=== PATIENT | male | born 1985 | race Caucasian/White ===

== ENCOUNTER 2019-03-25 06:58 | Emergency (ER) | payer MEDICAID ==
[~2019-03-25] VITALS: Ht 188 cm; Wt 95.0 kg
[~2019-03-25 06:58] MED LIST: ONDA8TAB13 PO
[2019-03-25 07:02] VITALS: BP 153/75
[2019-03-25] MEDS ORDERED: CYCL-1 PO (07:25)
== END 2019-03-25 08:12 | disposition home or self-care (01) ==
LOC: ER 06:59
DX: S76.912A Strain of unspecified muscles, fascia and tendons at thigh level, left thigh, initial encounter (principal); F17.200 Nicotine dependence, unspecified, uncomplicated; Z98.890 Other specified postprocedural states; Z88.6 Allergy status to analgesic agent; Z88.5 Allergy status to narcotic agent; X58.XXXA Exposure to other specified factors, initial encounter; Y93.89 Activity, other specified; Y92.89 Other specified places as the place of occurrence of the external cause; Y99.9 Unspecified external cause status
CPT/HCPCS: 99283

== ENCOUNTER 2020-10-25 08:57 | Emergency (ER) | payer MEDICAID ==
[~2020-10-25] VITALS: Ht 188 cm; Wt 97.0 kg
[~2020-10-25 08:57] MED LIST changes: +CYCL-1 PO
[2020-10-25 09:05] VITALS: BP 145/70
[2020-10-25] MEDS ORDERED: traMADol 50MG tablet PO ONE (10:45)
[2020-10-25] MEDS ORDERED: ONDA4TAB6 PO ×2 (11:07→11:10)
[2020-10-25] MEDS ORDERED: TRAM50TA2 PO ×2 (11:07→11:09)
== END 2020-10-25 11:35 | disposition home or self-care (01) ==
LOC: ER 08:58
DX: S92.001A Unspecified fracture of right calcaneus, initial encounter for closed fracture (principal); M25.571 Pain in right ankle and joints of right foot; M79.671 Pain in right foot; Z98.890 Other specified postprocedural states; Z88.6 Allergy status to analgesic agent; Z88.8 Allergy status to other drugs, medicaments and biological substances; Z79.899 Other long term (current) drug therapy; V29.3XXA Motorcycle rider (driver) (passenger) injured in unspecified nontraffic accident, initial encounter; Y93.89 Activity, other specified; Y92.89 Other specified places as the place of occurrence of the external cause; Y99.8 Other external cause status
CPT/HCPCS: 29515; 73610; 73630; 73700; 99284

== ENCOUNTER 2025-05-08 08:57 | Outpatient (CLI) | payer MEDICAID ==
[~2025-05-08 08:57] MED LIST changes: +ONDA-245 PO; +ONDA4TAB6 PO; -ONDA8TAB13 PO; +TRAM50TA2 PO
--- NOTE | 2025-05-08 12:49 | RADIOLOGY REPORT ---
CLINICAL INFORMATION: PAIN IN RIGHT SHOULDER. TECHNIQUE: Multisequence multiplanar MRI images of the right shoulder were obtained without contrast. COMPARISON: None FINDINGS: Acromioclavicular joint: There is mild acromioclavicular capsular hypertrophy and moderate adjacent soft tissue edema. There is Type 2 acromion. Small amount of fluid in the subacromial / subdeltoid bursa. Rotator cuff tendons: Supraspinatus, subscapularis, and teres minor tendons appear intact. Small partial-thickness interstitial tear at the infraspinatus tendon insertion involving the posterior fibers measuring up to 0.6 cm in greatest dimension, involving less than 50% of the tendon thickness. Biceps tendon: No significant tendinosis. No evidence of attrition or tear. Labrum: Small tear partially undermining the glenoid attachment of the posterior labrum extending to the posterior inferior labrum. Bones: Cortical deformity at the anterior aspect of the humeral head measuring up to 1.5 x 1.7 cm in approximately 0.3 cm in depth, extending to the anterior inferior aspect of the humeral head. No significant associated marrow edema, appears chronic. Muscles: Normal muscle bulk. No atrophy. Other: Motion limited study. IMPRESSION: 1. Motion limited study. 2. Focal cortical deformity at the anterior aspect of the humeral head and extending to the anterior inferior aspect of the humeral head, likely reverse hill-Sachs deformity in the setting of posterior dislocation. 3. Small tear of the posterior labrum and extending to the posterior inferior labrum. 4. Small partial-thickness interstitial tear involving the posterior fibers of the infraspinatus tendon insertion. 5. Mild acromioclavicular capsular hypertrophy with moderate adjacent soft tissue edema. Small amount of fluid in the subacromial / subdeltoid bursa. 6. Additional findings as described above.
--- NOTE | 2025-05-08 15:10 | RADIOLOGY REPORT ---
EXAM: CT CT UPPER EXTREMITIES HISTORY: PAIN IN LEFT WRIST COMPARISON: None TECHNIQUE: Axial images were obtained of the left wrist and reformatted in coronal and sagittal planes. All CT scans at this medical facility are performed using dose modulation techniques as appropriate to a performed exam including the following: Automated exposure control was utilized; adjustment of the MA and/or KV according to patient size; and use of iterative reconstruction technique. CT Dose: CTDI volume is 14.36+ 0.14 mGy. Dose-length product is 181.68 mGy*cm FINDINGS: Bones: Slight bony demineralization. Alignment is maintained. There is a well corticated fracture fragment at the dorsal articular surface of the distal radius on lateral projection on series 602, image 73. There is a mildly displaced fracture of the proximal to mid scaphoid body with comminution slight sclerosis along the fracture margins. There is a mildly displaced obliquely oriented fracture along the radial aspect of the distal radius with intra- articular extension into the radiocarpal joint. Well corticated osseous density adjacent to the ulnar styloid. Tiny fracture fragments adjacent to the distal triquetrum on series 601, image 26. Joint spaces preserved. Soft tissue: Muscle bundles about the left wrist are intact. The tendons and ligaments are grossly intact although not optimally evaluated by CT. No soft tissue fluid collection or soft tissue gas. IMPRESSION: 1. Mildly displaced and comminuted fracture of the proximal to mid scaphoid body. Acute to subacute appearing 2. Tiny fracture fragments along the distal triquetrum, indeterminate chronicity. 3. Chronic appearing ulnar styloid fracture. 4. Mildly displaced obliquely oriented fracture along the radial aspect of the distal radius with intra-articular extension into the radiocarpal joint, acute to subacute. 5. Age-indeterminate fracture fragment along the dorsal articular surface of the distal radius .
== END 2025-05-08 23:59 | disposition home or self-care (01) ==
LOC: RAD 08:57
PROVIDERS: ATTEND Family Medicine
DX: S62.022A Displaced fracture of middle third of navicular [scaphoid] bone of left wrist, initial encounter for closed fracture (principal); S52.502A Unspecified fracture of the lower end of left radius, initial encounter for closed fracture; S52.612A Displaced fracture of left ulna styloid process, initial encounter for closed fracture; M89.311 Hypertrophy of bone, right shoulder; M25.532 Pain in left wrist; S43.431A Superior glenoid labrum lesion of right shoulder, initial encounter; R60.0 Localized edema; M25.511 Pain in right shoulder; X58.XXXA Exposure to other specified factors, initial encounter; M75.111 Incomplete rotator cuff tear or rupture of right shoulder, not specified as traumatic; Y93.89 Activity, other specified; Y92.89 Other specified places as the place of occurrence of the external cause; Y99.8 Other external cause status
CPT/HCPCS: 73200; 73221